=== PATIENT | female | born 1970 | race Caucasian/White ===

== ENCOUNTER 2018-12-12 09:22 | Emergency (ER) | payer BC ==
[~2018-12-12] VITALS: Ht 165.1 cm; Wt 70.8 kg
--- OUTSIDE RECORDS SUMMARY | 2018-12-12 09:24 | XMS REPORT ---
Author Author [facility] Address Unknown Phone Unavailable Care Team Providers Care Allergy Specialist Name Role Phone Unavailable Unavailable Payers Payer Name Policy Type Policy Number Effective Date Expiration Date Problems This patient has no known problems. Allergies, Adverse Reactions, Alerts Allergy Name Allergy Type Status Severity Reaction(s) Onset Date Inactive Date Treating Clinician Comments morphine DA Active U 2018-09-05 00:00:00 No Known Contrast Allergies DA Active U 2001-08-18 00:00:00 No Known Drug Allergies DA Active U 2001-08-18 00:00:00 No Known Food Allergies DA Active U 2001-08-18 00:00:00 No Known Other Allergies DA Active U 2001-08-18 00:00:00 Medications This patient has no known medications. Results Test Description Test Time Test Comments Text Results Atomic Results Result Comments UTERUS,OTHER THAN PROLAPSE/GAURI 2018-09-09 19:23:00 RUN DATE: 09/10/18 [facility] PAGE 1 RUN TIME: 1039 Specimen Inquiry RUN USER: INTERFACE PATIENT: [facility]AL[facility]NA [facility] [id number] AGE/SX: 48/F ROOM: [facility] RE09/05/18REG DR: Josue Bradley MD : 66 BED: A DIS: 09/07/18 STATUS: DIS IN TLOC: SPEC #: [id number] RECD: 09/06/18 STATUS: HENRY RE #: [id number] HEIDE: 09/06/18- SUBM DR: Josue Bradley MD ENTERED: 09/06/18 SP TYPE: UTERUSOTH OTHR DR: ORDERED: LEVEL V SURGICA CODES: [id number] - UTERUS, NOS PROCEDURES: LEVEL V SURGICA (Incomplete) TISSUES: UTERUS, NOS - UTERUS AND BILATERAL FALLOPIAN TUBES CLINICAL HISTORY 48 year old, menorrhagia, adenomyosis, uterine fibroids (wpd) FINAL DIAGNOSIS Designated "uterus, bilateral fallopian tubes", supracervical hysterectomy and bilateral salpingectomy: - endometrium - secretory phase - myometrium - leiomyoma - uterine serosa - no pathologic alterations - bilateral fallopian tubes - no pathologic alterations (parafimbrial cysts and paratubal cyst identified) Tissue code 1 CPT code(s): 883 pkg/wpd 09/09/18 GROSS DESCRIPTION ANATOMIC SOURCE OF TISSUE (per Requisition): Uterus, bilateral tubes The specimen is received in formalin in a container, labeled with the patient's name and designated "uterus, bilateral tubes". It consists of a previous partially opened supracervical hysterectomy measuring 9 x 9 x 5.7 cm and weighing 161 gm, a separate 0.8 cm benites, firm nodule, and two separate segments of unoriented fallopian tubes with fimbriae attached. The serosa is benites, smooth, and glistening and contains a 0.2 cm subserosal nodular lesion. The red endometrium measures 0.1 cm. The myometrium contains a 3.5 cm benites, firm nodule with no identifiable degenerative change. Glue Reel Operator sections are submitted in A1 - endomyometrium and serosa with small, subserosal, firm nodule, A2 and A3 - telephone claims representative sections of firm nodules. CONTINUED ON NEXT PAGE RUN DATE: 09/10/18 [facility] PAGE 2 RUN TIME: 1039 Specimen Inquiry RUN USER: INTERFACE SPEC #: [id number] PATIENT: TALA PENA #[id number] (Continued) GROSS DESCRIPTION (Continued) The first segment of fallopian tube with fimbria measures 8 x 0.7 x 0.7 cm and contains parafimbrial cysts measuring up to 0.5 cm. The entire fimbria with the cysts and one cross-section of the tube are submitted in A4. The second segment of fallopian tube with fimbria measures 5 x 0.7 x 0.5 cm and contains a pedunculated 1.4 cm semi-translucent paratubal cyst. The entire fimbria and one cross-section of the tube with the cyst are submitted in A5. /wpd 09/06/18 @ 1508 MICROSCOPIC DESCRIPTION The endometrium is composed of evenly spaced tortuous glands with luminal secretions and cytoplasmic vacuoles. The myometrium contains a single leiomyoma without atypia. Foci of hyaline degenerative change are present. The uterine serosa is unremarkable. The bilateral fallopian tubes have intact architecture and are lined by serous epithelium without cytologic atypia. Parafimbrial cysts are identified on one fallopian tube and the other fallopian tube contains a benign paratubal cyst. roe/wpd 09/09/18 Signed Rosalva Augustin 09/09/18 1923 END OF REPORT HGB HCT 2018-09-07 05:06:00 HEMOGLOBIN (test code=HGB) 7.9 g/dL 10.7-13.9 HEMATOCRIT (test code=HCT) 28.1 % 32.1-42.1 UR HCG [id number] 10:42:00* Test Item Value Reference Range Comments UR HCG QUAL (test code=HCGQLU) NEGATIVE 1. Very dilute urine specimens, as indicated by a lowspecific gravity, may not contain telephone claims representative levels ofhCG. 2. False negative results may occur when the levels of hCGare below the sensitivity level of the test. If is still suspected, a first morningurine specimen should be collected 48 hours later andtested. IS THE BLOOD VOLUME 8-10 ML? YESHGB [id number] 04:55:00* Test Item Value Reference Range Comments HEMOGLOBIN (test code=HGB) 8.6 g/dL 10.7-13.9 HEMATOCRIT (test code=HCT) 30.2 % 32.1-42.1
[2018-12-12] MEDS ORDERED: DEXAMETHASONE 10MG/ML PF INJ ONE (09:54)
[2018-12-12] MEDS ORDERED: DEXAMETHASONE SOD PHOS 10 MG/1 ML VIAL IM ONE (10:00)
[2018-12-12] MEDS ORDERED: FAMOTIDINE 20 MG TAB PO ONE (10:30)
[2018-12-12 12:42] VITALS: BP 130/71
== END 2018-12-12 10:23 | disposition home or self-care (01) ==
LOC: FSED 09:22
DX: L24.9 Irritant contact dermatitis, unspecified cause (principal)
CPT/HCPCS: 96372; 99283; J1100

== ENCOUNTER → 2019-03-04 | Day surgery (SDC) | payer BC ==
[2019-03-03 14:04] LABS: BASOPHILS # (AUTO) 0.1 (0.0-0.1); BASOPHILS % 0.8 % (0.0-1.0); EOSINOPHILS # (AUTO) 0.1 (0.0-0.4); EOSINOPHILS % 1.9 % (0.0-6.0); HEMOGLOBIN 12.9 g/dL (12.0-16.0); LYMPHOCYTES # (AUTO) 1.7 (1.0-3.2); MEAN CORPUSCULAR HEMOGLOBIN 29.3 pg (28-32); MEAN CORPUSCULAR HGB CONC 33.1 g/dL (31-35); MEAN CORPUSCULAR VOLUME 88.6 fL (81-99); MONOCYTES # (AUTO) 0.5 (0.2-0.8); MONOCYTES % 8.2 % (4.4-11.3); NEUTROPHILS # (AUTO) 3.9 (2.1-6.9); NEUTROPHILS % 61.9 % (38.7-80.0); PLATELET COUNT 236 x10e3/uL (140-360); RED CELL DISTRIBUTION WIDTH 12.7 % (11.7-14.4)
--- NOTE | 2019-03-03 14:04 | Diagnostic Imaging Report ---
EXAMINATION: CHEST 2 VIEWS INDICATION: Pre-operative COMPARISON: None FINDINGS: LINES/TUBES:None LUNGS:The lungs are well-inflated. No focal consolidation or pulmonary edema. PLEURA:No pleural effusion or pneumothorax. MEDIASTINUM:The cardiomediastinal silhouette appears normal in size and shape. BONES/SOFT TISSUES:No acute osseous injury. ABDOMEN:No free air under the diaphragm. IMPRESSION: No focal pneumonia or pulmonary edema. Signed by: Mere Vu MD on 03/03/2019 2:01 PM
[2019-03-03 14:20] LABS: ANION GAP 13.8 mmol/L (8-16); BLOOD UREA NITROGEN 9 mg/dL (7-26); BUN/CREATININE RATIO 16 (6-25); CARBON DIOXIDE 26 mmol/L (22-29); CHLORIDE 104 mmol/L (98-107); CREATININE, SERUM 0.57 mg/dL (0.57-1.11); EST GLOMERULAR FILTRATION RATE > 60 ML/MIN (60-); GLUCOSE 91 mg/dL (74-118); POTASSIUM 3.8 mmol/L (3.5-5.1); SODIUM 140 mmol/L (136-145)
[~2019-03-04] MED LIST: ACETAMINOPHEN 1000 MG/100 ML IV ONE; AMBEREN PO; BLACK COHOSH160 MG PO; BUPIVACAINE HCL 0.5% INJ 30 ML VIAL INJ ONE; DEXAMETHASONE SOD PHOS INJ 4 MG/ML VIAL ONE; FENTANYL CITRATE/PF 100MCG/2 ML INJ ONE; FERROUS SULFAT325 MG PO; KETOROLAC TROMETHAMINE 30 MG/ML VIAL ONE; LIDOCAINE HCL 2% LOCAL INJ 5 ML SDV VIAL INJ ONE; MIDAZOLAM HCL 2 MG/2 ML VIAL ONE; NEOSTIGMINE 1 MG/ML 10ML VIAL ONE; ONDANSETRON HCL INJ 2MG/ML 2ML 2 MG/ML VIAL ONE; ONE DAILY MULT1 EAC1 PO; PROPOFOL IV EMULSION 10 MG/ML 20 ML VIAL ONE; SEVOFLURANE INHAL SOLN 250 ML PEN BTL ONE
[2019-03-04] MEDS: CEFAZOLIN SOD 1 GM/NS 50ML 100 ML IV ONE (07:06)
[2019-03-04 11:05] VITALS: BP 115/78
--- NOTE | 2019-03-05 23:51 | Operative Report ---
DATE OF PROCEDURE: 03/04/2019 SURGEON: Ash Garcia DPM PREOPERATIVE DIAGNOSES: 1. Hallux abductovalgus deformity, right foot. 2. Bony exostosis, 2nd digit, right foot. POSTOPERATIVE DIAGNOSES: 1. Hallux abductovalgus deformity, right foot. 2. Bony exostosis, 2nd digit, right foot. TITLE OF THE OPERATIONS: 1. Modified Porter bunionectomy of the right foot. 2. Exostectomy of the 2nd digit of the right foot. PROCEDURE IN DETAIL: The patient was taken to the operating room in a mildly sedated state, placed on the operating table in supine position. Following induction of general anesthetic, the right lower extremity was elevated to 60 degrees to exsanguinate before inflating the pneumatic thigh tourniquet to 350 mmHg for adequate hemostasis. The right lower extremity was placed on the operating table prior to performing the following procedures. Procedure #1: Modified Porter bunionectomy of the right foot. An approximate dorsal medial incision was made overlying the dorsomedial aspect of the 1st metatarsophalangeal joint of the right foot. Incision was deepened via sharp and blunt dissection below the dorsal capsular structure. Care was taken to identify and retract all vital structures encountered. The head of the first metatarsal was delivered to the surgical site and remodeled utilizing oscillating saw. The conjoined tendon of the adductor hallucis muscle was identified and tenotomized. A through and through V-osteotomy was placed with apex distally and base proximally to allow for relative shift lateralward of the head of the more proximal segment, which was then impacted and stabilized with two cortical bone screws 2.4 in size. The medial eminence and dorsal medial aspect were further remodeled utilizing oscillating saw and rotary bur. The area was then irrigated with copious amounts of sterile saline solution deep closure. Capsular repair with 3-0 Vicryl, subcutaneous closure with 4-0 Vicryl, and skin closure with 4-0 nylon. The areas of surgery were then blocked with 0.5 Marcaine and Decadron-LA. Human tissue allograft was injected to facilitate healing. The 2nd digit was then approached for exostectomy. Stab incision was placed overlying the distal interphalangeal joint level where a significant spurring had formed creating an external pre-ulcerative lesion. That area was then rasped smooth utilizing a power rasp, irrigated with copious amounts of sterile saline solution, and closed with 4-0 nylon. The areas of surgery were then blocked with 0.5 Marcaine and Decadron-LA. Release of the pneumatic thigh tourniquet showed normal hyperemic flush to all digits of right foot. The patient left the operating room with vital signs stable in no apparent satisfactory condition, having tolerated both anesthetic and procedure very well. LINDA Katz/ARIS /[id number]
== END | disposition home or self-care (01) ==
LOC: OR 06:29
PROVIDERS: ATTEND Podiatrist Foot Surgery
DX: M20.11 Hallux valgus (acquired), right foot (principal); M21.611 Bunion of right foot; Z01.810 Encounter for preprocedural cardiovascular examination; Z01.812 Encounter for preprocedural laboratory examination; Z01.818 Encounter for other preprocedural examination
CPT/HCPCS: 36415; 71046; 80048; 85025; 93005; C1713; J0690; J1100; J1885; J2001; J2250; J2405; J2710; J3010; Q4100

== ENCOUNTER 2021-02-22 20:52 | Emergency (ER) | payer BC ==
[~2021-02-22] VITALS: Ht 162.6 cm; Wt 72.6 kg
[~2021-02-22 20:52] MED LIST changes: -ACETAMINOPHEN 1000 MG/100 ML IV ONE; -BUPIVACAINE HCL 0.5% INJ 30 ML VIAL INJ ONE; -DEXAMETHASONE SOD PHOS INJ 4 MG/ML VIAL ONE; -FENTANYL CITRATE/PF 100MCG/2 ML INJ ONE; -KETOROLAC TROMETHAMINE 30 MG/ML VIAL ONE; -LIDOCAINE HCL 2% LOCAL INJ 5 ML SDV VIAL INJ ONE; -MIDAZOLAM HCL 2 MG/2 ML VIAL ONE; -NEOSTIGMINE 1 MG/ML 10ML VIAL ONE; -ONDANSETRON HCL INJ 2MG/ML 2ML 2 MG/ML VIAL ONE; -PROPOFOL IV EMULSION 10 MG/ML 20 ML VIAL ONE; -SEVOFLURANE INHAL SOLN 250 ML PEN BTL ONE
[2021-02-22] MEDS ORDERED: KETOROLAC TROMETHAMINE 30 MG/ML VIAL IV STA (21:05)
[2021-02-22] MEDS ORDERED: DICYCLOMINE HCL 20 MG/2 ML VIAL IM ONE (21:15)
[2021-02-22 21:22] LABS: BASOPHILS # (AUTO) 0.1 (0.0-0.1); BASOPHILS % 0.7 % (0.0-1.0); EOSINOPHILS % 0.3 % (0.0-6.0); HEMATOCRIT 39.8 % (34.2-44.1); HEMOGLOBIN 12.8 g/dL (12.0-16.0); LYMPHOCYTES # (AUTO) 1.6 (1.0-3.2); LYMPHOCYTES % 17.7 % (18.0-39.1); MEAN CORPUSCULAR HEMOGLOBIN 29.1 pg (28-32); MEAN CORPUSCULAR HGB CONC 32.2 g/dL (31-35); MEAN CORPUSCULAR VOLUME 90.5 fL (81-99); MONOCYTES # (AUTO) 0.9 (0.2-0.8); MONOCYTES % 10.3 % (4.4-11.3); NEUTROPHILS # (AUTO) 6.2 (2.1-6.9); NEUTROPHILS % 70.9 % (38.7-80.0); PLATELET COUNT 223 x10e3/uL (140-360); RED CELL DISTRIBUTION WIDTH 12.9 % (11.7-14.4)
[2021-02-22 21:25] LABS: CLARITY,URINE CLEAR (CLEAR); COLOR,URINE YELLOW (YELLOW); KETONES,URINE NEGATIVE (NEGATIVE); LEUKOCYTE ESTERASE ,URINE NEGATIVE (NEGATIVE); NITRITE,URINE NEGATIVE (NEGATIVE); PROTEIN,URINE DIPSTICK NEGATIVE (NEGATIVE); URINE UROBILINOGEN 0.2 mg/dL (0.2 - 1)
[2021-02-22 21:37] LABS: RBC,URINE 0-5 /HPF (0-5); WBC,URINE (MAN) 0-5 /HPF (0-5)
[2021-02-22 21:38] LABS: BACTERIA,URINE RARE /HPF; EPITHELIAL CELLS,URINE FEW /LPF
[2021-02-22 21:42] LABS: AMYLASE 64 U/L (25-125); LIPASE 23 U/L (8-78)
[2021-02-22 21:45] LABS: ALBUMIN/GLOBULIN RATIO 1.3 (0.8-2.0); ANION GAP 13.9 mmol/L (8-16); CALCIUM 9.2 mg/dL (8.4-10.2); CREATININE, SERUM 0.81 mg/dL (0.57-1.11); POTASSIUM 3.9 mmol/L (3.5-5.1)
== END 2021-02-22 23:22 | disposition home or self-care (01) ==
LOC: ER 21:07
DX: R10.11 Right upper quadrant pain (principal)
CPT/HCPCS: 36415; 80053; 81001; 82150; 83690; 85025; 99283; C9113; J0500; J1885

== ENCOUNTER → 2021-03-06 | Outpatient (CLI) | payer BC ==
[~2021-03-06] MED LIST changes: +GADOBENATE DIMEGLUMINE 1 ML IV ONE; +SODIUM CHLORIDE 0.9% 50ML 50 ML ONE
== END ==
LOC: MRI 10:28
PROVIDERS: ATTEND Internal Medicine Gastroenterology
DX: R10.11 Right upper quadrant pain (principal); R16.0 Hepatomegaly, not elsewhere classified
CPT/HCPCS: 74183; 78227; A9537